=== PATIENT | male | born 1985 | race Caucasian/White ===

== ENCOUNTER 2017-11-14 13:12 | Emergency (ER) | payer SELFPAY ==
[~2017-11-14] VITALS: Ht 180.3 cm; Wt 95.3 kg
[2017-11-14 13:16] VITALS: BP 122/71
--- NOTE | 2017-11-14 13:16 | ER Report ---
History and Physical Time Seen By MD: 13:16 HPI/ROS CC: Laceration HPI: 32 year old male with a negative past medical history presents to the emergency Department per POV. Just prior to coming to the emergency department patient was using a [place] the blade lacerated the soft tissue and webbing between his thumb and index finger of the right hand. 1 cm laceration which punctured through and came out to the proximal laceration which is 7 mm linear in configuration He sustained a laceration. His last tetanus was over 6 years ago. Pain scale is 4 out of 10. Good hemostasis after he states it bled for a while. There is no numbness or tingling of the thumb or index finger. Flexion and extension of the thumb and index finger of the right hand are within normal limits. 2 point discrimination is present as it is sharp dull sensation of the right hand. Capillary refills less than 2 seconds in all 5 digits of the right hand. ROS: 12 point review of systems essentially negative other than what's mentioned in history of present illness. NURSES AND OLD MEDICAL RECORDS: Reviewed PMH: Reviewed SURGICAL HX: Reviewed FAMILY HX: Noncontributory SOCIAL HX: Patient's lives at home denies smoking alcohol or illicit drugs. VITAL SIGNS: Reviewed CONSTITUTIONAL: 33-year-old male in minimal distress PHYSICAL EXAM: HEENT: Pupils equal round reactive to light and accommodate, EOMI, tympanic membranes pearly white umbo present with good light reflex. Lips dry mucous membranes moist gums nonbleeding uvula midline and rises equally with phonation, oropharynx noninjected, teeth intact. NECK: Neck supple, thyroid not appreciated, anterior and posterior cervical lymphadenopathy not appreciated. Trachea midline and rises equally with phonation. CARDIAC: S1-S2 regular rate rhythm no murmurs rubs or gallops. LUNGS: Lungs clear bilaterally posteriorly in all [place]. Good air movement. ABDOMEN: Abdomen soft, nondistended, bowel sounds active in all 4 quadrants, no bruits noted, no CVA tenderness. MUSCULOSKELETAL: Strength 5 out of 5 x 4 extremities, no deformities noted. 1 cm linear laceration in the webbing between the thumb and index finger of the right hand. Rest of exam as above in history of present illness. NEUROLOGIC: Patient alert and oriented by 3 Allergies: Coded Allergies: No Known Drug Allergies (Unverified , 11/14/17) Home Meds No Active Prescriptions or Reported Meds Constitutional Vital Sign - Last 24 Hours 11/14/17 13:16 Temp 97.6 Pulse 87 Resp 20 B/P (MAP) 122/71 Pulse Ox 95 O2 Delivery Room Air Medical Decision Making ED Course/Re-evaluation ED Course After verbal consent. Patient's hand and wound was cleansed with chlorhexidine. Infiltrated with 0.5% Sensorcaine. A 7 mL infiltration was accomplished. After adequate anesthesia the wound was irrigated with normal saline 150 ML's. No foreign bodies were noted. Distal laceration was sutured on nylon for interlocking mattress sutures were placed. There was communication with irrigation between the proximal and distal laceration. Therefore proximal laceration was left unsutured. No complications noted. Re-evaluation Medical decision making included but not excluded. Laceration, puncture wound. Decision to Disposition Date: Nov 14, 2017 Decision to Disposition Time: 13:52 Depart Departure Latest Vital Signs Vital Signs Date Time Temp Pulse Resp B/P (MAP) Pulse Ox O2 Delivery O2 Flow Rate FiO2 11/14/17 13:16 97.6 87 20 122/71 95 Room Air Impression: Primary Impression: Laceration Condition: Improved Disposition: HOME OR SELF-CARE New Scripts Cephalexin 500 Mg Tab (KEFLEX 500 MG TAB) 500 Mg Tablet 500 MG PO Q6H for 10 Days, #40 TAB Prov: JOELLE LUCERO MD 11/14/17 Patient Instructions: Laceration (ED) Additional Instructions: Sutures out in 10 days. You have been given an antibiotic. Take as directed. Return to the emergency department if you have any further concerns or signs of infection. You have been given a tetanus shot. Keep your hand out of all forms of water until sutures are removed. You have been given a work release. I and the staff wanted to thank you for allowing us to take care of your needs today in the emergency department at [facility]. We have tried to answer all of your questions and concerns. Please feel free to return to the emergency department for any further concerns or unanswered questions. JOELLE LUCERO MD Nov 14, 2017 13:16
[2017-11-14] MEDS ORDERED: DIPHTH/TETANUS/ACEL. PERTUSSIS IM ONLY ONE (13:30)
[2017-11-14] MEDS ORDERED: CEPH500T7 PO (13:56)
== END 2017-11-14 14:11 | disposition home or self-care (01) ==
LOC: ER 13:13
DX: S61.411A Laceration without foreign body of right hand, initial encounter (principal); W31.2XXA Contact with powered woodworking and forming machines, initial encounter
CPT/HCPCS: 90471; 90715; 99282